=== PATIENT | male | born 1965 | race Caucasian/White ===

== ENCOUNTER 2017-01-06 21:40 | Emergency (ER) | payer OTHER ==
[2017-01-06 21:56] VITALS: BP 152/86
--- NOTE | 2017-01-06 22:20 | EDM.PDOC ---
ED HPI GENERAL MEDICAL PROBLEM - General Chief Complaint: Respiratory Problem Stated Complaint: BREATHING DIFFICULTY, FEVER,COUGH Time Seen by Provider: 01/06/17 22:13 Source of Information: Reports: Patient, Family, RN Notes Reviewed History Limitations: Reports: No Limitations - History of Present Illness INITIAL COMMENTS - FREE TEXT/NARRATIVE: 51-year-old gentleman presents emergency department day complaint of shortness of breath, he states been ill for about a week does cough green sputum started having fevers a couple days ago no chest pain no nausea vomiting no diaphoresis no or GI symptoms Chest Pain Score (Numeric/FACES): 4 - Related Data Allergies Allergy/AdvReac Type Severity Reaction Status Date / Time No Known Allergies Allergy Verified 11/28/12 08:25 Home Meds: Home Meds Lisinopril/Hydrochlorothiazide [Lisinopril-Hctz 10-12.5 mg Tab] 1 tab PO DAILY 11/28/12 [History] Past Medical History Cardiovascular History: Reports: Hypertension Other Cardiovascular History: mitral valve prolapse Other Immunologic History: staph infection Social & Family History - Family History Family Medical History: Noncontributory - Tobacco Use Smoking Status *Q: Never Smoker Years of Tobacco use: 12 Used Tobacco, but Quit: No Month Tobacco Last Used: 12 Second Hand Smoke Exposure: No - Caffeine Use Caffeine Use: Reports: Soda - Alcohol Use Days Per Week of Alcohol Use: 0 - Recreational Drug Use Recreational Drug Use: No ED ROS GENERAL - Review of Systems Review Of Systems: See Below Constitutional: Reports: Fever, Chills HEENT: Reports: No Symptoms Respiratory: Reports: Shortness of Breath, Cough, Sputum. Denies: Wheezing Cardiovascular: Reports: No Symptoms GI/Abdominal: Reports: No Symptoms : Reports: No Symptoms Musculoskeletal: Reports: No Symptoms Skin: Reports: No Symptoms Neurological: Reports: No Symptoms ED EXAM, GENERAL - Physical Exam Exam: See Below Exam Limited By: No Limitations General Appearance: Alert, WD/WN, No Apparent Distress Eye Exam: Bilateral Eye: Normal Inspection Ears: Normal External Exam Nose: Normal Inspection, Normal Mucosa, No Blood Throat/Mouth: Normal Inspection, Normal Lips, Normal Teeth, Normal Gums, Normal Oropharynx, Normal Voice, No Airway Compromise Head: Atraumatic, Normocephalic Neck: Normal Inspection, Supple, Non-Tender, Full Range of Motion Respiratory/Chest: No Respiratory Distress, Lungs Clear, Normal Breath Sounds, No Accessory Muscle Use Cardiovascular: Regular Rate, Rhythm, No Murmur GI/Abdominal: Soft, Non-Tender Course - Vital Signs Last Recorded V/S: Last Vital Signs Temp 98.1 F 01/06/17 21:52 Pulse 98 01/06/17 21:52 Resp 20 01/06/17 21:52 BP 152/86 H 01/06/17 21:52 Pulse Ox 96 01/06/17 21:52 Departure - Departure Time of Disposition: 22:19 Disposition: Home, Self-Care 01 Condition: Good Clinical Impression: Bronchitis - Discharge Information Referrals: PCP,None [Primary Care Provider] - Additional Instructions: Take full course of antibiotics, use Robitussin-AC as needed for cough, Please followup with your primary care provider in 5-7 days if not better, please call return to the emergency department with worsening of symptoms. - Assessment/Plan Plan: Assessment Acuity = acute Site and laterality = bronchitis Etiology = suspect bacterial cause Manifestations = cough, fever Location of injury = Home Lab values = none Plan Elected to treat empirically with azithromycin and Robitussin-AC Z-Jhonny per package directions, cough medicine 10 mL every 4-6 hours when necessary follow- up with primary care in 5-7 days if not better Patient was in agreement with the plan all questions were answered, they were instructed to return to the emergency department or call for worsening symptoms. This note was dictated using [place] voice recognition software please call with any questions.
== END 2017-01-06 22:30 | disposition home or self-care (01) ==
LOC: JP.ED 21:40
DX: J40 Bronchitis, not specified as acute or chronic (principal); I10 Essential (primary) hypertension
CPT/HCPCS: 99285

== ENCOUNTER 2020-07-06 16:00 | Emergency (ER) | payer OTHER ==
--- NOTE | 2020-07-06 18:15 | EDM.PDOC ---
ED HPI GENERAL MEDICAL PROBLEM - General Chief Complaint: Chest Pain Stated Complaint: COVID POSITIVE,CHEST PAIN Time Seen by Provider: 07/06/20 16:25 Source of Information: Reports: Patient History Limitations: Reports: No Limitations - History of Present Illness INITIAL COMMENTS - FREE TEXT/NARRATIVE: 54-year-old male, obese, type 2 diabetes who has been diagnosed with Covid 2 days ago presents with a cough and intermittent chest pain. He is mostly concerned about the brief but recurring chest pains in the anterior chest. Occasional chills but no fever, denies nausea or vomiting. Some weakness. Onset: Gradual (Symptoms have worsened over the last 2 to 3 days) Associated Symptoms: Reports: Chest Pain, Cough, Malaise, Weakness, Other (Chills but no fever). Denies: Confusion, Headaches, Nausea/Vomiting Chest Pain Score (Numeric/FACES): 0 - Related Data Allergies Allergy/AdvReac Type Severity Reaction Status Date / Time No Known Allergies Allergy Verified 07/07/20 09:41 Home Meds: Home Meds Lisinopril/Hydrochlorothiazide [Lisinopril-Hctz 10-12.5 mg Tab] 1 tab PO DAILY 11/28/12 [History] Aspirin [Ecotrin EC] 81 mg PO DAILY 07/06/20 [History] Indomethacin [Indocin] 50 mg PO DAILY PRN 07/06/20 [History] Methylphenidate [Concerta] 27 mg PO DAILY 07/06/20 [History] atorvaSTATin Calcium [Atorvastatin Calcium] 20 mg PO DAILY 07/06/20 [History] metFORMIN HCl [Metformin HCl] 1,000 mg PO BID 07/06/20 [History] Past Medical History HEENT History: Reports: None Cardiovascular History: Reports: High Cholesterol, Hypertension, Other (See [place]) Other Cardiovascular History: mitral valve prolapse Respiratory History: Reports: None Genitourinary History: Reports: Chronic Renal Insuffiency, Renal Calculus Other Genitourinary History: stage 2 Musculoskeletal History: Reports: Gout Neurological History: Reports: None Psychiatric History: Reports: ADD Endocrine/Metabolic History: Reports: Diabetes, Type II Hematologic History: Reports: None Other Immunologic History: staph infection Oncologic (Cancer) History: Reports: None Dermatologic History: Reports: None - Infectious Disease History Infectious Disease History: Reports: Chicken Pox - Past Surgical History HEENT Surgical History: Reports: None GI Surgical History: Reports: Appendectomy, Colonoscopy Musculoskeletal Surgical History: Reports: None Social & Family History - Family History Family Medical History: No Pertinent Family History - Tobacco Use Tobacco Use Status *Q: Never Tobacco User - Caffeine Use Caffeine Use: Reports: Soda - Recreational Drug Use Recreational Drug Use: No ED ROS GENERAL - Review of Systems Review Of Systems: See Below Constitutional: Reports: Chills, Malaise HEENT: Denies: Throat Pain Respiratory: Reports: Shortness of Breath, Wheezing, Cough Cardiovascular: Reports: Chest Pain GI/Abdominal: Denies: Nausea, Vomiting Skin: Reports: No Symptoms Neurological: Denies: Headache Psychiatric: Reports: No Symptoms ED EXAM, GENERAL - Physical Exam Exam: See Below Exam Limited By: No Limitations General Appearance: Alert, No Apparent Distress Eye Exam: Bilateral Eye: Normal Inspection Head: Atraumatic Respiratory/Chest: No Respiratory Distress, Wheezing (Few scattered expiratory wheezes are heard, good underlying air movement) Cardiovascular: Regular Rate, Rhythm, Tachycardia (Mild tachycardia) GI/Abdominal: Other (Significant obesity). No: Tender Extremities: No: Pedal Edema Neurological: Alert, Oriented Psychiatric: Normal Affect, Normal Mood Skin Exam: Warm, Dry Course - Vital Signs Last Recorded V/S: Last Vital Signs Temp 97.7 F 07/06/20 16:14 Pulse 104 H 07/06/20 18:23 Resp 29 H 07/06/20 17:47 BP 133/89 07/06/20 18:23 Pulse Ox 97 07/06/20 17:47 - Orders/Labs/Meds Orders: Active Orders 24 hr Category Date Time Status EKG 12 Lead [EK] Routine Ther 07/06/20 16:45 Ordered Labs: Laboratory Tests 07/06/20 07/06/20 Range/Units 17:05 17:05 WBC 5.5 (4.5-11.0) K/uL RBC 5.65 (4.30-5.90) M/uL Hgb 16.2 H (12.0-15.0) g/dL Hct 48.1 (40.0-54.0) % MCV 85 (80-98) fL MCH 29 (27-31) pg MCHC 34 (32-36) % Plt Count 102 L (150-400) K/uL Neut % (Auto) 67 H (36-66) % Lymph % (Auto) 20 L (24-44) % [place] % (Auto) 11 H (2-6) % Eos % (Auto) 2 (2-4) % Baso % (Auto) 1 (0-1) % Sodium 138 L (140-148) mmol/L Potassium 4.1 (3.6-5.2) mmol/L Chloride 102 (100-108) mmol/L Carbon Dioxide 23 (21-32) mmol/L Anion Gap 17.1 H (5.0-14.0) mmol/L BUN 14 (7-18) mg/dL Creatinine 1.3 (0.8-1.3) mg/dL Est Cr Clr Drug Dosing 71.30 mL/min Estimated GFR (MDRD) 58 L (>60) Glucose 347 H (74-106) mg/dL Calcium 9.0 (8.5-10.1) mg/dL Total Bilirubin 0.8 (0.2-1.0) mg/dL AST 61 H D (15-37) U/L ALT 108 H (12-78) U/L Alkaline Phosphatase 153 H (46-116) U/L Troponin I < 0.017 (0.000-0.056) ng/mL Total Protein 7.0 (6.4-8.2) g/dL Albumin 3.7 (3.4-5.0) g/dL Globulin 3.3 (2.3-3.5) g/dL Albumin/Globulin Ratio 1.1 L (1.2-2.2) - Re-Assessments/Exams Free Text/Narrative Re-Assessment/Exam: 07/06/20 18:12 EKG was done which shows no acute ST changes. 1 view chest x-ray was negative for infiltrate. CBC CMP were obtained, glucose was elevated To 347, LFTs were broadly but mildly elevated. White count was normal, electrolytes stable. Troponin returned 0. Patient was reassured that the symptoms are likely related to Covid and noncardiac, but he does meet criteria for monoclonal therapy which he agreed to be evaluated and set up for 07/06/20 18:15 Patient will return tomorrow for monoclonal antibody therapy. Departure - Departure Time of Disposition: 18:51 Disposition: Home, Self-Care 01 Clinical Impression: Bronchitis due to COVID-19 virus, Atypical chest pain - Discharge Information Instructions: COVID-19, Nonspecific Chest Pain, Adult, [id number] Referrals: PCP,None [Primary Care Provider] - Forms: ED Department Discharge Care Plan Goals: Continue your current medications, return tomorrow for antibiotic therapy as scheduled. Return anytime if worsening such as difficulty breathing, vomiting, or uncontrolled pain. Sepsis Event Note (ED) - Evaluation Sepsis Screening Result: No Definite Risk - My Orders Last 24 Hours: My Active Orders 07/06/20 16:45 EKG 12 Lead [EK] Routine - Assessment/Plan Last 24 Hours: My Active Orders 07/06/20 16:45 EKG 12 Lead [EK] Routine
[2020-07-06 18:24] VITALS: BP 133/89; PULSE 104
--- NOTE | 2020-07-07 08:59 | CR ---
CHEST: Portable 07/06/2020 at 5:01 PM CLINICAL HISTORY:Chest pain COMPARISON:2013 FINDINGS: The heart size, pulmonary vascularity and hilar structures are normal. No infiltrate effusion or pneumothorax is seen. IMPRESSION: No acute cardiopulmonary process.
== END 2020-07-06 18:51 | disposition home or self-care (01) ==
LOC: JP.ED 16:00
DX: U07.1 COVID-19 (principal); J40 Bronchitis, not specified as acute or chronic; E78.00 Pure hypercholesterolemia, unspecified; I12.9 Hypertensive chronic kidney disease with stage 1 through stage 4 chronic kidney disease, or unspecified chronic kidney disease; E11.22 Type 2 diabetes mellitus with diabetic chronic kidney disease; N18.9 Chronic kidney disease, unspecified; M10.9 Gout, unspecified; E66.9 Obesity, unspecified; Z68.41 Body mass index [BMI] 40.0-44.9, adult; Z79.82 Long term (current) use of aspirin; Z79.84 Long term (current) use of oral hypoglycemic drugs; Z79.899 Other long term (current) drug therapy
CPT/HCPCS: 36415; 71045; 71045-26; 80053; 84484; 85025; 93005; 99285-25

== ENCOUNTER 2020-07-08 11:55 | Emergency (ER) | payer OTHER ==
[2020-07-08 13:41] VITALS: BP 143/92; PULSE 107
--- NOTE | 2020-07-08 14:04 | EDM.PDOC ---
ED HPI GENERAL MEDICAL PROBLEM - General Chief Complaint: Respiratory Problem Stated Complaint: COVID POSITIVE WEAKNESS Time Seen by Provider: 07/08/20 13:45 Source of Information: Reports: Patient, Old Records, RN History Limitations: Reports: No Limitations - History of Present Illness INITIAL COMMENTS - FREE TEXT/NARRATIVE: 54 yo male with Covid sx's since last Sunday and a positive dx since then had a BAM tx yesterday and feels a little worse today. He is not itchy or wheezing. No SOB at rest. He called the nurse line at [facility] and was told to come to the ER. Onset: Gradual Duration: Day(s):, Getting Worse Location: Reports: Generalized Quality: Reports: Ache (mild, diffuse) Severity: Mild Improves with: Reports: None Worsens with: Reports: Other (? from the BAM tx) Context: Reports: Other (See HPI) Associated Symptoms: Reports: Malaise, Shortness of Breath (mild with exertion). Denies: Fever/Chills, Nausea/Vomiting, Rash Treatments [employer] REPA[employer]ER: Reports: Other (see below) (BAM yesterday) - Related Data Allergies Allergy/AdvReac Type Severity Reaction Status Date / Time No Known Allergies Allergy Verified 07/08/20 13:42 Home Meds: Home Meds Lisinopril/Hydrochlorothiazide [Lisinopril-Hctz 10-12.5 mg Tab] 1 tab PO DAILY 11/28/12 [History] Aspirin [Ecotrin EC] 81 mg PO DAILY 07/06/20 [History] Indomethacin [Indocin] 50 mg PO DAILY PRN 07/06/20 [History] Methylphenidate [Concerta] 27 mg PO DAILY 07/06/20 [History] atorvaSTATin Calcium [Atorvastatin Calcium] 20 mg PO DAILY 07/06/20 [History] metFORMIN HCl [Metformin HCl] 1,000 mg PO BID 07/06/20 [History] Past Medical History HEENT History: Reports: None Cardiovascular History: Reports: High Cholesterol, Hypertension, Other (See Below) Other Cardiovascular History: mitral valve prolapse Respiratory History: Reports: None Genitourinary History: Reports: Chronic Renal Insuffiency, Renal Calculus Other Genitourinary History: stage 2 Musculoskeletal History: Reports: Gout Neurological History: Reports: None Psychiatric History: Reports: ADD Endocrine/Metabolic History: Reports: Diabetes, Type II Hematologic History: Reports: None Other Immunologic History: staph infection Oncologic (Cancer) History: Reports: None Dermatologic History: Reports: None - Infectious Disease History Infectious Disease History: Reports: Chicken Pox - Past Surgical History HEENT Surgical History: Reports: None GI Surgical History: Reports: Appendectomy, Colonoscopy Musculoskeletal Surgical History: Reports: None Social & Family History - Family History Family Medical History: No Pertinent Family History - Tobacco Use Tobacco Use Status *Q: Never Tobacco User - Caffeine Use Caffeine Use: Reports: Soda - Recreational Drug Use Recreational Drug Use: No ED ROS GENERAL - Review of Systems Review Of Systems: See Below Constitutional: Reports: Malaise. Denies: Fever, Chills HEENT: Reports: No Symptoms Respiratory: Reports: Shortness of Breath (with exertion). Denies: Wheezing, Pleuritic Chest Pain, Sputum, Hemoptysis Cardiovascular: Reports: No Symptoms Endocrine: Reports: No Symptoms GI/Abdominal: Reports: No Symptoms : Reports: No Symptoms Musculoskeletal: Reports: No Symptoms Skin: Reports: No Symptoms Neurological: Reports: No Symptoms ED EXAM, GENERAL - Physical Exam Exam: See Below Exam Limited By: No Limitations General Appearance: Alert, WD/WN, No Apparent Distress Eye Exam: Bilateral Eye: Normal Inspection Ears: Normal External Exam, Normal Canal, Hearing Grossly Normal, Normal TMs Ear Exam: Bilateral Ear: Auricle Normal, Canal Normal, TM normal Nose: Normal Inspection, No Blood Throat/Mouth: Normal Inspection, Normal Lips, Normal Oropharynx, Normal Voice, No Airway Compromise Head: Atraumatic, Normocephalic Neck: Normal Inspection Respiratory/Chest: No Respiratory Distress, Lungs Clear, Normal Breath Sounds, No Accessory Muscle Use Cardiovascular: Regular Rate, Rhythm, No Edema GI/Abdominal: Normal Bowel Sounds, Soft, Non-Tender, No Distention Extremities: Normal Inspection, Normal Range of Motion, Non-Tender, No Pedal Edema. No: Pedal Edema, Johny's Sign Neurological: Alert, Oriented, CN II-XII Intact, Normal Cognition, No Motor/Sensory Deficits Psychiatric: Normal Affect, Normal Mood Skin Exam: Warm, Dry, Intact, Normal Color, No Rash Course - Vital Signs Last Recorded V/S: Last Vital Signs Temp 36.4 C 07/08/20 13:39 Pulse 107 H 07/08/20 13:39 Resp 20 07/08/20 13:39 BP 143/92 H 07/08/20 13:39 Pulse Ox 96 07/08/20 13:39 Departure - Departure Time of Disposition: 14:06 Disposition: Home, Self-Care 01 Condition: Good Clinical Impression: COVID-19 - Discharge Information *PRESCRIPTION DRUG MONITORING PROGRAM REVIEWED*: Not Applicable *COPY OF PRESCRIPTION DRUG MONITORING REPORT IN PATIENT OTTO: Not Applicable Referrals: PCP,None [Primary Care Provider] - Forms: ED Department Discharge Additional Instructions: Drink enough so your urine is light yellow in color. Take zinc 25-50 mg daily. Take Vitamin D 4000 IU daily. Take an aspirin tablet daily with food. Isolate yourself to reduce the risk of spread. Recheck if SOB at rest. Sepsis Event Note (ED) - Evaluation Sepsis Screening Result: Possible Sepsis Risk - Focused Exam Vital Signs: Vital Signs Temp Pulse Resp BP Pulse Ox 07/08/20 13:39 36.4 C 107 H 20 143/92 H 96
== END 2020-07-08 14:18 | disposition home or self-care (01) ==
LOC: JP.ED 11:55
DX: U07.1 COVID-19 (principal); E78.00 Pure hypercholesterolemia, unspecified; I12.9 Hypertensive chronic kidney disease with stage 1 through stage 4 chronic kidney disease, or unspecified chronic kidney disease; E11.22 Type 2 diabetes mellitus with diabetic chronic kidney disease; M10.9 Gout, unspecified; N18.2 Chronic kidney disease, stage 2 (mild); Z79.82 Long term (current) use of aspirin
CPT/HCPCS: 99284

== ENCOUNTER 2021-09-16 11:58 | Emergency (ER) | payer OTHER ==
[2021-09-16 13:22] LABS: TROPONIN I HIGH SENSITIVITY 15.9 pg/mL (<=60.3)
[2021-09-16 14:42] VITALS: BP 155/85; PULSE 83
== END 2021-09-16 17:01 | disposition home or self-care (01) ==
LOC: JP.ED 11:58
DX: R07.89 Other chest pain (principal); E78.00 Pure hypercholesterolemia, unspecified; E11.22 Type 2 diabetes mellitus with diabetic chronic kidney disease; I12.9 Hypertensive chronic kidney disease with stage 1 through stage 4 chronic kidney disease, or unspecified chronic kidney disease; N18.30 Chronic kidney disease, stage 3 unspecified; E66.01 Morbid (severe) obesity due to excess calories; D69.6 Thrombocytopenia, unspecified; Z68.41 Body mass index [BMI] 40.0-44.9, adult; Z79.899 Other long term (current) drug therapy; Z79.84 Long term (current) use of oral hypoglycemic drugs
CPT/HCPCS: 36415; 80048; 84484; 85025; 93005; 93010; 99283; 99285